=== PATIENT | male | born 1995 | race Two or more races ===

== ENCOUNTER 2024-11-20 19:32 | Emergency (ER) | payer SELFPAY ==
[2024-11-20 19:33] VITALS: BMI 25.0
[2024-11-20 19:48] VITALS: BP 130/86; PULSE 120; RESP 20; TEMP 36.9; O2SAT 98
--- NOTE | 2024-11-20 19:51 | EDNOTE_ITS ---
ED Chest Pain RME/HPI General Chief Complaint: Chest Pain Stated Complaint: CHEST PAIN, FEELS LIGHTHEADED, SOB Time Seen by Provider: 11/20/24 19:39 Arrival date/time: 11/20/24 19:32 RME / HPI RME / HPI narrative: This section includes all my notes and documentations, including HPI, PE, and ED course. Ryan Jarrell MD HPI: 29-year-old male here to be evaluated with chest pain and other symptoms intermittently all day today. Symptoms can include intense fear, pounding and racing heart, sweating, chills, shaking, trouble breathing, chest pain, stomach pain, nausea, numbness and tingling in the hands and feet and face, confusion, hot flashes, and feeling faint. No other complaints. ROS: All negative except as documented in HPI. Physical Exam: General: Alert and oriented. Appears anxious. Eyes: Conjunctivae and lids clear. ENT: No nasal congestion. Neck: Supple. Heart: RRR. Lungs: No respiratory distress. Good air movement. No rhonchi, wheezing, rales. Skin: Warm and dry. Neuro: Alert and oriented X 3. I reviewed all diagnostic test results: My interpretation of the EKG is: Sinus rhythm (105 bpm) with nonspecific ST-T changes. My interpretation of the chest x-ray is: NAD. Blood tests unremarkable, including negative troponin/D-dimer/BNP. At this point, diagnoses include: Chest pain. Treatment here included: Xanax 0.5 mg Significant improvement noted. Recommended more outpatient cardiac workup. Based on my best medical judgment, made decision no further evaluation or treatment indicated at this time. Patient understands and agrees to the discharge instructions customized and printed, see below. Discharge instructions from Dr. Jarrell: 1. After extensive evaluation, there is no life-threatening condition.? Such as heart attack or pulmonary embolism (blood clots in your lungs) or pneumothorax (collapsed lung). 2. Your symptoms may be due to underlying stress or anxiety or nerves.? This is fairly common. 3. Take Xanax as needed.? Whether this helps or not will be valuable information to your private doctors. 4. See a private doctor on 11/23/2024 for recheck and further care. To make sure there is no serious underlying heart condition, ask to help you get more tests for your heart that cannot be done here in the ER.? Such as Holter Monitor (cardiac monitoring at home from a day to even a month), heart stress test (on treadmill or with medication), echocardiogram (imaging of your heart structures), heart catherization (checking for blockages in your heart arteries), and a referral to see a Hand Counter. Ask to review all test results and official radiology reports, to make sure you receive all necessary follow-ups and monitoring. 5. Seek immediate medical care with worsening or with any concerns. Ryan Jarrell MD Related Data Previous Rx's ?Medication ?Instructions ?Recorded alprazolam 0.5 mg tablet (Xanax) 0.5 mg PO BID PRN anx iety #10 tabs 11/20/24 Allergies Allergy/AdvReac Type Severity Reaction Status Date / Time No Known Allergies Allergy Verified 11/20/24 19:36 Review of Systems Review of Systems Systems Reviewed: All systems reviewed, normal except as documented Past Medical History Social History SMOKING STATUS: Never smoker ED Exam Narrative Physical exam: Refer to HPI Course Course Course Narrative: CXR is ordered for determining the etiology of shortness of breath. Quality Measures none Orders Category Date Time Status EKG (ED ONLY) *Do not use* NOW Care 11/20/24 19:55 Completed EKG (ED Only) Stat Exams 11/20/24 19:55 Draft XR chest 1V portable Stat Exams 11/20/24 19:56 Completed Amylase Stat Lab 11/20/24 20:24 Results BNP [B-Type Natriuretic Peptide] Stat Lab 11/20/24 20:24 Completed Bilirubin,Direct Stat Lab 11/20/24 20:24 Results CBC Stat Lab 11/20/24 20:24 Completed CMP [Comprehensive Metabolic Panel] Stat Lab 11/20/24 20:24 Results D-Dimer Stat Lab 11/20/24 20:24 Completed Free T4 (Free Thyroxine) Stat Lab 11/20/24 20:24 Results Hemoglobin A1C [Glycohemoglobin w (eAG)] Stat Lab 11/20/24 20:24 Received Lipase Stat Lab 11/20/24 20:24 Results Magnesium Stat Lab 11/20/24 20:24 Results TSH [Thyroid Stimulating Hormone] Stat Lab 11/20/24 20:24 Results Troponin I Stat Lab 11/20/24 20:24 Results ALPRazoLAM [Xanax] Med 11/20/24 19:56 Discontinued 0.5 mg PO X1 ONE Vital Signs Vital signs: Vital Signs Temperature 98.4 F 11/20/24 19:48 Pulse Rate 120 H 11/20/24 19:48 Respiratory Rate 20 11/20/24 19:48 Blood Pressure 130/86 H 11/20/24 19:48 Pulse Oximetry (%) 98 11/20/24 19:48 Oxygen Delivery Method Room Air 11/20/24 19:48 Chest Pain MDM Narrative MDM Narrative:: Scribe Attestation: I, Emily Hernández, am scribing for and in the presence of Dr. Jarrell. Provider Notation: Although this document has been carefully reviewed, there may still be some phonetic and other typographical errors.? These errors are purely grammatical due to imperfections in the software program and should not be construed in any way to? compromise the substance of the patient's medical care during this visit. 29 y/o male presents with mid-upper chest pain x approximately 6 hours. Patient admits to having a relatively unhealthy diet and s concerned for ulcer and possible diabetes. He reports exacerbation of chest pain after eating and drinking Coke. Patient was seen at [facility] 1 month ago and treated with Ativan. He also saw his PCP who is referring him to cardiology. No other complaints. Patient data External records reviewed:: [facility] previous records (No prior ED records available for review.) Clinical information provided by:: patient Social determinants that could affect healthcare access:: none Patient has the following chronic illnesses:: None reported How is presenting disease/condition affected by chronic disease/condition?: no chronic disease Evaluation data The following diagnostics were reviewed and interpreted by me:: lab results, radiology exam(s) and EKG tracing(s) (My interpretation of the EKG is: Sinus rhythm (105 bpm) with nonspecific ST-T changes. Ryan Jarrell MD) Lab and/or radiology exams considered but not ordered:: None Interpretation Summary: I reviewed all diagnostic test results: My interpretation of the EKG is: Sinus rhythm (105 bpm) with nonspecific ST-T changes. My interpretation of the chest x-ray is: NAD. Blood tests unremarkable, including negative troponin/D-dimer/BNP. Medications / Prescriptions Medications or Prescriptions considered but not ordered:: None Medication administrations:: Medication Administration History Discontinued Medications Alprazolam (Alprazolam 0.25 Mg Tablet) 0.5 mg PO X1 ONE Stop: 11/20/24 19:57 Last Admin: 11/20/24 20:03 Dose: 0.5 mg Documented By: Xanax 0.5 mg Consultations Consultation(s) initiated? (list below): No Diagnosis Chest Pain Differential Diagnosis: stable angina, unstable angina pectoris, atypical chest pain, st elevation myocardial infarction, costochondritis, chest pain, biliary colic and other (GERD, Ulcer, Gatritis) Most likely diagnosis given after review of the tests above:: Chest Pain due to anxiety. Admission Indicated Admission indicated?: not indicated Explain why admission is indicated or not indicated:: With no condition needing emergent intervention, there was no indication for admission. Admission Request Was there a request for admission?: No Disposition Plan Disposition Plan: Discharge Discharge Attestation Discharge Attestation: The patient and all family members were given an opportunity to ask questions and understood the discharge instructions. Discharge instructions specifically effects, indications for sooner follow up or return to the emergency department, and the expected course of current diagnosis. Patient condition: Stable Discharge Plan Plan Patient Disposition: HOME (Self Care) Prescriptions/Referrals Prescriptions/Med Rec: New alprazolam [Xanax] 0.5 mg tablet 0.5 mg PO BID PRN (Reason: anxiety) Qty: 10 0RF Referrals: No Primary/Family,Physician [Primary Care Provider] - In 1 week Problem List Clinical Impression: Chest pain Patient/Caregiver Discharge Instructions Discharge Activity: activity as tolerated Education Materials: ED Anxiety Reaction, ED Panic Attack Additional Instructions: Discharge instructions from Dr. Jarrell: 1. After extensive evaluation, there is no life-threatening condition.? Such as heart attack or pulmonary embolism (blood clots in your lungs) or pneumothorax (collapsed lung). 2. Your symptoms may be due to underlying stress or anxiety or nerves.? This is fairly common. 3. Take Xanax as needed.? Whether this helps or not will be valuable information to your private doctors. 4. See a private doctor on 11/23/2024 for recheck and further care. To make sure there is no serious underlying heart condition, ask to help you get more tests for your heart that cannot be done here in the ER.? Such as Holter Monitor (cardiac monitoring at home from a day to even a month), heart stress test (on treadmill or with medication), echocardiogram (imaging of your heart structures), heart catherization (checking for blockages in your heart arteries), and a referral to see a Hand Counter. Ask to review all test results and official radiology reports, to make sure you receive all necessary follow-ups and monitoring. 5. Seek immediate medical care with worsening or with any concerns.?? Print Language: Yi Stand Alone Forms: [employer] Award Info., Patient Portal Info Letter
--- NOTE | 2024-11-20 19:55 | EKG_ITS ---
[facility] Test Date: 2024-11-20 Pat Name: ERICA HARLEY Department: Room: - Gender: Male [employer]ist: : [id number] Requested By: Ryan Gomez Order Number: [id number] Reading MD: Ryan Gomez Measurements Intervals Morrison Rate: 105 P: 73 NH: 131 QRS: 46 QRSD: 89 T: 22 QT: 309 QTc: 409 Interpretive Statements SINUS TACHYCARDIA NONSPECIFIC T-WAVE ABNORMALITY ABNORMAL RHYTHM ECG No previous ECG available for comparison /[id number]/[id number].pdf
--- NOTE | 2024-11-20 19:56 | XR_ITS ---
Examination: PA chest single view TECHNIQUE: Upright PA chest single view Date and time: November 20, 2024, 2012 hours INDICATIONS: Chest pain and shortness of breath beginning 2 months ago. FINDINGS: Normal heart size. Lungs are clear. Osseous structures are intact IMPRESSION: No active disease
[2024-11-20 21:14] LABS: Basophils # (Auto) 0.0 Thou/mm3 (0.0-0.2); Basophils % (Auto) 0 % (0-2.5); Eosinophils # (Auto) 0.0 Thou/mm3 (0.0-0.5); Eosinophils % (Auto) 0 % (0-10); Hematocrit 47.5 % (41.0-53.0); Hemoglobin 16.3 g/dL (13.5-16.0); Immature Granulocytes Auto 0.01 Thou/mm3 (0.00-0.00); Lymphocytes # (Auto) 0.9 Thou/mm3 (1.0-4.8); Lymphocytes % (Auto) 11 % (10-50); Mean Corpuscular HGB Conc 34.3 g/dl (31.0-37.0); Mean Corpuscular Hemoglobin 31.0 pg (25.0-35.0); Mean Corpuscular Volume 91 fL (80-100); Monocytes # (Auto) 0.4 Thou/mm3 (0.0-0.8); Monocytes % (Auto) 5 % (0-12); Neutrophils # (Auto) 6.6 Thou/mm3 (1.8-7.7); Neutrophils % (Auto) 83 % (37-80); Nucleated Red Blood Cell # 0.00 Thou/mm3 (0.00-0.00); Nucleated Red Blood Cell % 0 /100 WBC (0); Platelet Count 289 Thou/mm3 (140-440); RDW Standard Deviation 38.5 fL (35.1-43.9); Red Blood Count 5.25 Miln/mm3 (4.50-5.90); White Blood Count 7.9 Thou/mm3 (3.8-10.6)
[2024-11-20 21:46] LABS: D-Dimer < 250 ng/mL (<600)
[2024-11-20 21:51] LABS: B-Type Natriuretic Peptide < 20 pg/mL (0-100)
[2024-11-20 21:54] LABS: Alanine Aminotransferase 52 U/L (10-49); Albumin, Serum 5.1 gm/dL (3.5-5.0); Albumin/Globulin Ratio 1.9 (1.2-2.2); Alkaline Phosphatase 112 U/L (46-116); Anion Gap 6 (7-16); Aspartate Amino Transferase 27 U/L (0-34); BUN/Creatinine Ratio 7 Ratio (12-20); Bilirubin,Direct 0.2 mg/dL (0.0-0.3); Bilirubin,Total 0.5 mg/dL (0.3-1.2); Blood Urea Nitrogen 7 mg/dL (9-23); Calcium 10.5 mg/dL (8.3-10.6); Calcium (Corrected) 10.5 mg/dL (8.5-10.1); Carbon Dioxide 26.6 mMol/L (20.0-31.0); Chloride 106 mMol/L (98-107); Creatinine (Component) 1.0 mg/dL (0.6-1.3); Estimated Creatinine Clearance 101.9 mL/min (>60); Free T4 (Free Thyroxine) 1.19 ng/dL (0.89-1.76); Globulin 2.7 gm/dL (2.3-3.5); Glucose 115 mg/dL (74-106); Lipase 38 U/L (12-53); Magnesium 2.3 mg/dL (1.6-2.6); Osmolality,Calculated 276 (275-295); Potassium 3.8 mMol/L (3.4-5.1); Sodium 139 mMol/L (136-145); Thyroid Stimulating Hormone 0.80 uIU/mL (0.55-4.78); Total Protein 7.8 gm/dL (5.7-8.2); Troponin I < 0.002 ng/mL (0.0-0.045); eGFR > 60 See Note
[2024-11-20 23:07] VITALS: BP 118/80; PULSE 85; RESP 18; O2SAT 99
[2024-11-20 23:39] LABS: Glucose Estimated Average 94 mg/dL (80-131); Hemoglobin A1C 4.9 % Hgb (4.8-6.0)
[2024-11-20 23:46] LABS: Amylase 53 U/L (30-118)
== END 2024-11-20 23:08 | disposition home or self-care (01) ==
PROVIDERS: Emergency Provider Emergency Medicine
DX: R07.9 Chest pain, unspecified (principal); R06.02 Shortness of breath; R94.31 Abnormal electrocardiogram [ECG] [EKG]
CPT/HCPCS: 36415; 71045; 80053; 82150; 82248; 83036; 83690; 83735; 83880; 84439; 84443; 84484; 85025; 85379; 99283; A9270